=== PATIENT | male | born 1950 | race Caucasian/White ===

== ENCOUNTER 2021-10-07 08:00 | Emergency (ER) | payer OTHER ==
--- NOTE | 2021-10-07 08:40 | ED Physician Documentation ---
PD HPI BACK PAIN - Stated complaint Stated Complaint: LOWER BACK PX - Chief complaint Chief Complaint: Back Pain - History obtained from History obtained from: Patient - History of Present Illness Timing - onset: How many hours ago (few), Today Timing - duration: Hours (few) Timing - details: Abrupt onset, Still present Location: Mid, Left Quality: Pain, Sharp. No: Throbbing Associated symptoms: No: Fever, Weakness, Numbness, Incontinent of urine Improves with: No: Rest, Meds (tylenol at home) Worsened by: No: Movement, Twisting, Palpation Similar symptoms before: Has not had sx before Review of Systems Constitutional: denies: Fever, Chills Nose: denies: Rhinorrhea / runny nose, Congestion Throat: denies: Sore throat Respiratory: denies: Cough GI: reports: Abdominal Pain, Nausea. denies: Vomiting, Diarrhea : denies: Dysuria, Hematuria Skin: denies: Rash, Lesions Neurologic: denies: Generalized weakness, Difficulty speaking, Near syncope PD PAST MEDICAL HISTORY - Past Medical History Cardiovascular: Hypertension Respiratory: None Neuro: None GI: None - Present Medications Home Medications: Ambulatory Orders Medication Instructions Recorded Confirmed Atorvastatin [Lipitor] 20 mg PO DAILY 10/07/21 10/07/21 Docusate Sodium 100Mg Capsule 100 mg PO BID #20 cap 10/07/21 [Colace 100Mg Capsule] Naproxen 500 mg PO BID #20 tab.sr 10/07/21 Ondansetron Odt [Zofran] 4 mg TL Q6H PRN #15 tablet 10/07/21 Tamsulosin [Flomax] 0.4 mg PO DAILY #5 cap 10/07/21 oxyCODONE [Roxicodone] 5 mg PO Q6H PRN #15 tablet 10/07/21 - Allergies Allergies/Adverse Reactions: Allergies Allergy/AdvReac Type Severity Reaction Status Date / Time Penicillins Allergy Unknown Verified 10/07/21 08:17 - Living Situation Living Situation: reports: With spouse/s.o. Living Arrangement: reports: At home - Social History Does the pt have substance abuse?: No PD ED PE NORMAL - General General: Alert and oriented X 3, Well developed/nourished, Other (appears in pain) - Neck Neck: Supple, no meningeal sign, No adenopathy - Cardiac Cardiac: RRR, No murmur - Respiratory Respiratory: Clear bilaterally - Abdomen Abdomen: Normal bowel sounds, Soft, Non tender, Non distended, No organomegaly - Male Male : Deferred - Rectal Rectal: Deferred - Back Back: Other (left CVA tender to percussion) - Derm Derm: Normal color, Warm and dry - Neuro Neuro: Alert and oriented X 3, No motor deficit, Normal speech Results - Vitals Vitals: Vital Signs - 24 hr 10/07/21 10/07/21 10/07/21 08:14 09:08 10:44 Temperature 37.0 C Heart Rate 59 L 55 L 59 L Respiratory 16 16 18 Rate Blood Pressure 154/76 H 125/73 122/75 O2 Saturation 98 97 99 Oxygen O2 Source Room air - Labs Labs: Laboratory Tests 10/07/21 10/07/21 08:56 08:56 WBC 12.0 H RBC 4.35 L Hgb 13.6 L Hct 41.2 L MCV 94.7 H MCH 31.3 H MCHC 33.0 RDW 13.0 Plt Count 264 MPV 9.6 Neut # (Auto) 9.8 H Lymph # (Auto) 1.3 L [place] # (Auto) 0.7 Eos # (Auto) 0.1 Baso # (Auto) 0.1 Absolute Nucleated RBC 0.00 Nucleated RBC % 0.0 Sodium 137 Potassium 4.3 Chloride 100 L Carbon Dioxide 28 Anion Gap 9.0 BUN 20 Creatinine 0.9 Estimated GFR (MDRD) 84 L Glucose 173 H Calcium 9.2 Total Bilirubin 1.1 H AST 20 ALT 21 Alkaline Phosphatase 58 Total Protein 7.3 Albumin 4.0 Globulin 3.3 Albumin/Globulin Ratio 1.2 Lipase 31 - Rads (name of study) abd/pelvic CT without Radiology: Prelim report reviewed (4 mm proximal ureteral stone left side with mild hydro. ), See rad report PD MEDICAL DECISION MAKING - ED course Complexity details: reviewed results (4 mm stone proximal left ureter. ), re- evaluated patient (pain much improved with IV fluids. He is okay for now. ), considered differential (seems likely kidney stone. Consider diverticulitis, UTI or other process. ), d/w patient Departure - Departure Disposition: 01 Home, Self Care Clinical Impression: Left lateral abdominal pain, Ureterolithiasis Condition: Stable Record reviewed to determine appropriate education?: Yes Instructions: ED Stone Renal W Colic Follow-Up: [facility] [Provider Group] Prescriptions: Docusate Sodium 100Mg Capsule [Colace 100Mg Capsule] 100 mg PO BID #20 cap Tamsulosin [Flomax] 0.4 mg PO DAILY #5 cap Naproxen 500 mg PO BID #20 tab.sr oxyCODONE [Roxicodone] 5 mg PO Q6H PRN #15 tablet PRN Reason: Pain Ondansetron Odt [Zofran] 4 mg TL Q6H PRN #15 tablet PRN Reason: Nausea / Vomiting Comments: Stay well-hydrated. There is no reason to over hydrate per se. Your CT report does show the kidney stone 4 mm in the proximal ureter. There is some generous stool and some mild inflammation through the intestine so a stool softener would be appropriate as well. Use an anti-inflammatory such as naproxen twice daily with food for the next 7 to 10 days. You can discontinue it sooner if you passed the stone sooner. Tamsulosin daily for the next several days to help reduce ureteral spasms and promote passage more easily. Ondansetron if needed for nausea. To these add Tylenol every 4-6 hours if needed for pain or oxycodone if needed for worse pain. Follow-up with your primary care if not fully improved over the next several days to week. Return to the ER if worse despite medicines. If the stone does not seem to pass on its own over the next week or so, then seek a referral to urology through your primary care/[place]. I transmitted your prescriptions to the [facility] pharmacy here in [place]. I am prescribing a short course of narcotic pain medication for you. These are potentially dangerous and addictive medications that should be used carefully. These medications may constipate you. Take an daiz-aae[place] stool softener such as docusate twice daily with plenty of water while taking these medications. If you go 24 hours without a bowel movement, take [id number] MiraLAX, per package instructions. Do not drink or drive while taking these medications. If you received narcotic or sedating medications while in the emergency department do not drive for 24 hours. Store this medication in a safe, secure place and out of reach of children. It is a violation of federal law to give or sell this medication to another person or to use in a manner other than prescribed. The ED will not refill narcotic prescriptions, including prescriptions lost or stolen. You can dispose of unwanted medications at [facility] office or at several pharmacies such as [facility]. Discharge Date/Time: 10/07/21 10:47
[2021-10-07] MEDS ORDERED: ONDANSETRON 4 MG/2 ML VIAL IVP STA (08:48)
[2021-10-07] MEDS ORDERED: HYDROmorphone 1 MG/ML CARPUJECT IVP STA (08:48)
[2021-10-07] MEDS ORDERED: SODIUM CHLORIDE 0.9% 1,000 ML IV STA (08:48)
[2021-10-07] MEDS ORDERED: KETOROLAC 15 MG/ML VIAL IVP STA (08:48)
[2021-10-07 09:01] LABS: BASOPHILS # (AUTO) 0.1 10^3/uL (0.0-0.1); BASOPHILS % (AUTO) 0.6 %; EOSINOPHILS # (AUTO) 0.1 10^3/uL (0.0-0.7); HCT - HEMATOCRIT 41.2 % (42.0-52.0); HGB - HEMOGLOBIN 13.6 g/dL (14.0-18.0); LYMPHOCYTES # (AUTO) 1.3 10^3/uL (1.5-3.5); LYMPHOCYTES % (AUTO) 10.5 %; MEAN CORPUSCULAR HEMOGLOBIN 31.3 pg (27.0-31.0); MEAN CORPUSCULAR VOLUME 94.7 fL (80.0-94.0); MEAN PLATELET VOLUME 9.6 fL (7.4-11.4); MONOCYTES # (AUTO) 0.7 10^3/uL (0.0-1.0); MONOCYTES % (AUTO) 6.1 %; NEUTROPHILS # (AUTO) 9.8 10^3/uL (1.5-6.6); NEUTROPHILS % (AUTO) 81.2 %; PLT - PLATELET COUNT 264 10^3/uL (130-450); RED BLOOD COUNT 4.35 10^6/uL (4.70-6.10)
[2021-10-07 09:14] LABS: ALBUMIN/GLOBULIN RATIO 1.2 (1.0-2.2); BILIRUBIN,TOTAL 1.1 mg/dL (0.2-1.0); CALCIUM 9.2 mg/dL (8.5-10.3); CREATININE 0.9 mg/dL (0.6-1.2); POTASSIUM 4.3 mmol/L (3.5-5.0); TOTAL PROTEIN 7.3 g/dL (6.7-8.2)
--- NOTE | 2021-10-07 10:20 | CT Report ---
PROCEDURE: Abdomen/Pelvis WO INDICATIONS: left flank pain abrupt overnight. TECHNIQUE: Noncontrast 5 mm thick sections acquired from the diaphragms to the symphysis. 5 mm coronal and sagi ttal reformats were then performed. For radiation dose reduction, the following was used: automated exposure control, adjustment of mA and/or kV according to patient size. COMPARISON: None. FINDINGS: Image quality: Excellent. Images are denoted as (series #/image #). Visualized lung bases: No pleural effusion. Liver and biliary tree: Unremarkable noncontrast appearance. Gallbladder: No radiopaque cholelithiasis. Spleen: Unremarkable noncontrast appearance. Pancreas: Unremarkable noncontrast appearance. Adrenal glands: Unremarkable noncontrast appearance. Kidneys and ureters: A 4 mm stone is present at the proximal left ureter. Several left renal sinus cy sts are likely present which makes evaluation difficult however there is likely minimal left hydronep hrosis. A cortical cyst is present in the right kidney without suspicious features necessitating imag ing follow-up. No right renal stone or hydroureteronephrosis. Gastrointestinal tract / peritoneal cavity: No bowel obstruction. Moderate relatively diffuse colonic diverticulosis without definite evidence of acute diverticulitis. There is an ill-defined region of fat stranding present in the right lower quadrant abutting the terminal ileum (for example series 6 i mage [id number]) of unclear etiology. No obvious wall thickening of the adjacent terminal ileum visualized. T he appendix is visualized separate to this finding and appears within normal limits. Bladder: Moderate-sized bladder diverticulum along the right posterior bladder. Pelvic organs: Prostatomegaly. Vasculature: No abdominal aortic aneurysm. Abdominal wall: Small fat-containing periumbilical hernia. Musculoskeletal: Degenerative change of the spine and hips. IMPRESSION: 1. A 4 mm stone is present at the proximal left ureter with probable minimal left upstream hydronephr osis. 2. Inflammatory changes/fat stranding are present in the right lower quadrant of the abdomen, of uncl ear etiology. The appendix is visualized separate to this finding without evidence of acute appendici tis. The inflammatory change abuts the terminal ileum, however no obvious wall thickening of the term inal ileum is visualized. Differential considerations would include sequela of an enteritis which cou ld be infectious or inflammatory, or mesenteric adenitis. Correlation for signs or symptoms of an ent eritis or history of inflammatory bowel disease may be helpful. Imaging follow-up could be obtained i f desired, with the interval at clinical discretion. Reviewed by: Jimmy Cage MD on 10/07/2021 10:19 AM PDT Approved by: Jimmy Cage MD on 10/07/2021 10:19 AM PDT Station ID: [id number]
[2021-10-07 10:46] VITALS: BP 122/75
== END 2021-10-07 10:47 | disposition home or self-care (01) ==
LOC: ED 08:00
DX: N20.1 Calculus of ureter (principal)
CPT/HCPCS: 36415; 74176; 80053; 83690; 85025; 96374; 96375; 99284; J1170